=== PATIENT | male | born 1995 | race Caucasian/White ===

== ENCOUNTER 2021-07-08 22:41 | Emergency (ER) | payer BC ==
[~2021-07-08] VITALS: Ht 167.6 cm; Wt 75.7 kg
[2021-07-08 23:03] VITALS: BP_SYST 132
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
[2021-07-08] MEDS ORDERED: MAG HYDROX/AL HYDROX/SIMETH 30 ML, DICYCLOMINE HCL 20 MG, LIDOCAINE VISCOUS 2% 15ML (PO... PO ONE ×3 (23:30)
[2021-07-08] MEDS ORDERED: NACL 0.9% 1,000 ML IV ONE (23:30)
[2021-07-08] MEDS ORDERED: ONDANSETRON HCL 4 MG/2 ML VIAL IVP ONE (23:30)
--- NOTE | 2021-07-08 23:30 | NUR ---
DR CONNELLY AT BEDSIDE FOR EXAM
[2021-07-09 01:03] LABS: BASOPHILS % (AUTO) 0.4 % (0.0-2.0); EOSINOPHILS % (AUTO) 0.3 % (0.0-4.0); HEMATOCRIT 41.1 % (36-54); HEMOGLOBIN 14.3 g/dL (14.0-18.0); LYMPHOCYTES # (AUTO) 1.4 K/uL (1.0-5.5); LYMPHOCYTES % (AUTO) 12.5 % (20.5-51.5); MEAN CORPUSCULAR HEMOGLOBIN 31 pg (27-31); MEAN CORPUSCULAR HGB CONC 35 % (32-36); MEAN CORPUSCULAR VOLUME 90 fL (79.0-98.0); MONOCYTES # (AUTO) 0.6 K/uL (0.0-1.0); MONOCYTES % (AUTO) 5.1 % (1.7-9.3); NEUTROPHILS # (AUTO) 8.8 K/uL (1.8-7.7); NEUTROPHILS % (AUTO) 81.7 % (40.0-70.0); PLATELET COUNT (AUTO) 217 K/uL (130-430); RED BLOOD CELL COUNT(AUTO) 4.59 MIL/uL (4.2-6.2); RED CELL DISTRIBUTION WIDTH 12.1 % (9.0-15.0); WHITE BLOOD COUNT (AUTO) 10.8 K/uL (4.8-10.8)
[2021-07-09 01:12] LABS: ANION GAP 10 (5-15); CHLORIDE 104 mmol/L (98-107); CREATININE 0.98 mg/dL (0.55-1.30); GLUCOSE 137 mg/dL (70-99); POTASSIUM 4.2 mmol/L (3.5-5.1); SODIUM SERUM 137 mmol/L (136-145); UREA NITROGEN, BLOOD 20 mg/dL (8-21)
--- NOTE | 2021-07-09 01:15 | NUR ---
PT WITH EYES CLOSED, IN NAD. RESP EVEN AND UNLABORED, ON RA @98%, EASILY AWKENED. WILL CONT TO MONITOR.
[2021-07-09 01:20] LABS: ALANINE AMINOTRANSFERASE 26 U/L (12-78); ALBUMIN 4.1 g/dL (3.4-4.8); ASPARTATE AMINOTRANSFERASE 31 U/L (10-37); TOTAL BILIRUBIN 0.3 mg/dL (0.0-1.0)
[2021-07-09 01:26] LABS: GFR AFRICAN AMERICAN 118 mL/min (>90)
[2021-07-09] MEDS ORDERED: OMEP40CA20 PO (02:30)
[2021-07-09] MEDS ORDERED: ANT30 PO (02:30)
[2021-07-09] MEDS ORDERED: ONDANSETRON HCL 4 MG/2 ML VIAL IVP ONE (02:45)
[2021-07-09] MEDS ORDERED: LORazepam 1 MG TABLET PO ONE (02:45)
[2021-07-09] MEDS ORDERED: LORazepam 2 MG/ML VIAL IVP ONE (02:45)
--- NOTE | 2021-07-09 02:58 | NUR ---
PT REPORTS NAUSEA AND FEELING ANXIOUS. DR CONNELLY NOTIFIED. ORDERS RECEIEVED AND PROCESSED.
[2021-07-09 03:19] VITALS: BP_SYST 132
--- NOTE | 2021-07-09 03:20 | NUR ---
Patient given written and verbal discharge instructions and verbalizes understanding. ER MD discussed with patient the results and treatment provided. Patient in stable condition. ID arm band removed. IV catheter removed intact and dressing applied, no active bleeding. Rx of MAG HYDROX, OMEPRAZOLE given. Patient educated on pain management and to follow up with PMD. Pain Scale . Opportunity for questions provided and answered. Medication side effect fact sheet provided.
== END 2021-07-09 03:19 | disposition home or self-care (01) ==
LOC: SED 22:41
DX: K21.00 Gastro-esophageal reflux disease with esophagitis, without bleeding (principal); R07.89 Other chest pain; F41.9 Anxiety disorder, unspecified; Z79.899 Other long term (current) drug therapy
CPT/HCPCS: 36415; 71045; 80053; 83880; 84484; 85025; 85379; 93005; 96361; 96374; 96375; 96376; 99285; J2001; J2060; J2405 ×2; J7030

== ENCOUNTER 2022-07-31 05:47 | Emergency (ER) | payer BC ==
[~2022-07-31] VITALS: Ht 167.6 cm; Wt 79.4 kg
[~2022-07-31 05:47] MED LIST: ANT30 PO; OMEP40CA20 PO
--- NOTE | 2022-07-31 06:15 | NUR ---
Patient to ER bed 03 to gown for evaluation. Side rails up. Report given to RAMONA MARAVILLA.
[2022-07-31 06:16] VITALS: BP_SYST 157
--- NOTE | 2022-07-31 06:20 | NUR ---
ER at bedside examining patient.
--- NOTE | 2022-07-31 06:25 | NUR ---
pt c/o sore throat which has lasted for 4 days, currently the pt states his sore throat is not allowing him to rest. pt states it vail on a scale 1-10 rates his pain a 7. pt has no other complaints vss, nad safety rails up connected to vs monitor.
--- NOTE | 2022-07-31 07:08 | NUR ---
report given to Edison GREENE
[2022-07-31] MEDS ORDERED: OSEL75CA PO (08:05)
[2022-07-31 09:08] VITALS: BP_SYST 118
--- NOTE | 2022-07-31 09:10 | NUR ---
DISCHARGE PT MEDICALLY CLEARED FOR DISCHARGE. D/C INSTRUCTIONS GIVEN TO PT. PT TO FOLLOW-UP WITH PCP WITHIN 1-3 DAYS AND TO RETURN TO ED FOR WORSENING S/S. PT VERBALZIED UNDERSTANDING. PT AAX04, NAD, WRISTBAND REMOVED. PT AMBULATORY WITH STEADY GAIT. PT LEFT ED WITH ALL BELONGINGS.
== END 2022-07-31 09:10 | disposition home or self-care (01) ==
LOC: SED 05:47
DX: J11.1 Influenza due to unidentified influenza virus with other respiratory manifestations (principal); R05.9 Cough, unspecified; R09.81 Nasal congestion; Z79.899 Other long term (current) drug therapy; Z20.822 Contact with and (suspected) exposure to COVID-19
CPT/HCPCS: 36415; 71045; 99284